=== PATIENT | female | born 1945 | race Caucasian/White ===

== ENCOUNTER → 2016-03-27 | Outpatient (CLI) | payer OTHER ==
--- NOTE | 2016-03-27 10:23 | MA ---
Screening Digital Left Mammogram With Tomosynthesis Clinical Indications: Routine screening. History of right mastectomy for breast cancer. Technique: Standard digital cephalocaudal and tomosynthesis mediolateral oblique projections are obt ained of the left breast. The digital images are processed by the iCAD computer aided detection syst em. Comparison: March 20, 2014 Breast density: C; The breast tissue is heterogeneously dense, which could obscure detection of small masses. Findings: CAD was reviewed. No suspicious findings are identified in the left breast. Impression: Negative left mammogram. BI-RADS 1. Recommendation: Routine screening is recommended in one year, as long as physical examination is ricardo ign in this patient with moderately dense breast parenchyma. [facility] will send a result letter to the patient. Negative mammography should not preclude additional workup of a clinically suspicious finding. The patient's information is entered into a reminder system with a target due date for her next mammo gram.
--- NOTE | 2016-03-27 18:04 | DX ---
DEXA Bone Mineral Densitometry Clinical Indications: Postmenopausal, osteoporosis medication, Synthroid for thyroid dysfunction, hi story of breast cancer, follow-up osteoporosis Comparison: March 20, 2014 Technique: Bone Mineral Densitometry (BMD) by Dual Energy X-Ray Absorptiometry (DEXA) was performed utilizing the [employer] scanner. The lumbar spine was evaluated in the AP projection. The bilat eral hips and forearm were evaluated in the AP projection. Vertebral fracture assessment was also pe rformed. AP Lumbar Spine: The L1 and L2 vertebral bodies were evaluated. BMD: 0.739 gm/cm2 T-score: -3.6 SD Z-score: -1.8 SD Decreased by 13.9% AP Left Hip: Total BMD: 0.644 gm/cm2 T-score: -2.9 SD Z-score: -1.3 SD No significant change. AP Right Hip: Neck BMD: 0.605 gm/cm2 T-score: -3.1 SD Z-score: -1.3 SD No significant change in total BMD AP Left Forearm, 02/18: BMD: 0.487 gm/cm2 T-score: -4.4 SD Z-score: -2.5 SD No significant change Vertebral Fracture Assessment: No significant fracture deformity. No prevertebral aortic calcificati on, significant marginal bone spurring, facet arthrosis, or intrinsic vertebral body sclerosis that would effect the accuracy of the lumbar spine BMD measurement. Conclusion: Considering the lowest measured site, the patient remains osteoporotic and at increased risk for fracture. Since the forearm is the lowest measured site, it would be worthwhile to exclude h yperparathyroidism. The ten year FRAX risk for any major osteoporotic fracture , which excludes the r isk for a wrist fracture, is 19.5% and for a hip fracture is 7.3%. Osteoporotic therapeutic intervent ion should be continued as clinically directed. To prevent osteoporosis and to promote the patient's bone density, the following recommendations shou ld be considered: 1. Pursue a regular regimen of weightbearing and muscle strengthening exercises in order to reduce t he risk of falls and fractures (as tolerated by the patient's general medical condition). 2. Ensure that daily dietary calcium uptake is maximized. 3. Consider checking the serum vitamin D level. Ensure that intake of vitamin D is 800 IU per day (f or ages 71 and older). 4. Consider follow-up DEXA scan in one year to reassess the efficacy of pharmacologic intervention i n this severely osteoporotic patient.
== END ==
LOC: FIMAGING 08:57
PROVIDERS: ATTEND Family Medicine
DX: M81.0 Age-related osteoporosis without current pathological fracture (principal); E07.9 Disorder of thyroid, unspecified; Z78.0 Asymptomatic menopausal state; Z85.3 Personal history of malignant neoplasm of breast
CPT/HCPCS: G0202-52

== ENCOUNTER 2016-09-25 09:58 | Emergency (ER) | payer OTHER ==
[2016-09-25 10:04] VITALS: RESP 18
--- NOTE | 2016-09-25 10:31 | EDPHY ---
H & P Stated Complaint: rlq and r flank pain x 2 weeks Time Seen by Provider: 09/25/16 10:17 HPI/ROS: CHIEF COMPLAINT: Right lower quadrant pain x2 weeks HISTORY OF PRESENT ILLNESS: 71-year-old female arrives via private vehicle complaining of 2 weeks of progressive right lower quadrant pain described as constant,, dull ache. Not reproducible with palpation or with oral intake. Contacted her PCP this morning recommend she come to the ER for evaluation. No nausea or vomiting. Loose stool x1 year. No melena or hematochezia. No trauma. No rash. No urinary abnormality. No dysuria no hematuria. Last oral intake 7:30 a.m. consisting of toast PRIMARY CARE PROVIDER:Dr. Eduardo Apple REVIEW OF SYSTEMS: A ten point review of systems was performed and is negative with the exception of the items mentioned in the HPI PAST MEDICAL & SURGICAL HISTORY: Breast cancer. Mastectomy. Cervical fusion. Thyroidectomy. SOCIAL HISTORY: Nonsmoker. No drug use. PHYSICAL EXAM (Prior to examination, patient consented to physical exam, hands were washed and my usual and customary physical exam procedures followed) 1) GENERAL: Well-developed, well-nourished, alert and oriented. Appears to be in no acute distress. 2) HEAD: Normocephalic, atraumatic 3) HEENT: Pupils equal, round, reactive to light bilaterally. Sclera anicteric. Nasopharynx, oropharynx, clear, no lesions. Ears bilaterally with normal tympanic membranes. 4) NECK: Full range of motion, no meningeal signs. 5) LUNGS: Clear auscultation bilaterally, no wheezes, no rhonchi, no retractions. 6) HEART: Regular rate and rhythm, no murmur, no heave, no gallop. 7) ABDOMEN: No guarding, tender to palpation right lower quadrant with positive McBurney's , negative Baer's, negative Rovsing's, negative peritoneal sign, 8) MUSCULOSKELETAL: Moving all extremities, no focal areas of tenderness, no obvious trauma. No peripheral edema or discoloration. 9) BACK: No CVA tenderness, no midline vertebral tenderness, no fluctuance, no step-off, no obvious trauma, no visual or palpable abnormality. 10) SKIN: No rash, no petechiae. no vesicles 11) Psychiatric: Patient is oriented X 3, there is no agitation. DIFFERENTIAL DIAGNOSIS: My differential diagnosis includes, but is not limited to, acute appendicitis, acute cholecystitis, bowel obstruction, acute pancreatitis, , gastritis and urinary tract infection. The patient understands that this diagnosis is provisional and can never be 100% accurate. This is a partial list of diagnoses considered. These considerations are based on history , physical exam, past history and reassessment. - Personal History Current Tetanus/Diphtheria Vaccine: Yes Tetanus Vaccine Date: Within 10 years - Medical/Surgical History Hx Asthma: No Hx Chronic Respiratory Disease: No Hx Diabetes: No Hx Cardiac Disease: No Hx Renal Disease: No Hx Cirrhosis: No Hx Alcoholism: No Hx HIV/AIDS: No Hx Splenectomy or Spleen Trauma: No Other PMH: Breast CA, Thyroidectomy, R lumpectomy 1998, R partial mastectomy, Arthritis, R toe surgery, cervical fusion C2-C3, C3-C4, R rotator cuff repair. - Social History Smoking Status: Never smoked Constitutional: Initial Vital Signs Temperature (C) 36.4 C 09/25/16 10:02 Heart Rate 54 L 09/25/16 10:02 Respiratory Rate 18 09/25/16 10:02 Blood Pressure 155/57 H 09/25/16 10:02 O2 Sat (%) 98 09/25/16 10:02 O2 Delivery Mode Room Air Allergies/Adverse Reactions: No Known Allergies Allergy (Verified 09/25/16 10:01) Home Medications: Medication Instructions Recorded Ascorbic Acid [Vitamin C 500 mg 500 mg PO DAILY 05/30/14 (*)] Aspirin [Aspirin 81mg (*)] 81 mg PO DAILY 05/30/14 Calcium Citrate W/Vit D [Citracal 315 mg PO DAILY 05/30/14 + D] Cholecalciferol Vit D3 [Vitamin D3 1,000 units PO DAILY 05/30/14 (*)] Levothyroxine [Synthroid 125 mcg 125 mcg PO DAILY 05/30/14 (*)] Meloxicam [Mobic 15 mg] 15 mg PO DAILY 05/30/14 Phytonadione [Vitamin K] 100 mcg PO DAILY 05/30/14 Raloxifene HCl [Evista] 60 mg PO DAILY 05/30/14 Acyclovir [Zovirax 200 mg (*)] 200 mg PO DAILY 06/08/14 Docusate Sodium [Colace] 100 mg PO BID #6 cap 09/25/16 Medical Decision Making ED Course/Re-evaluation: 12:04 p.m.: Re-evaluation. Re-evaluated abdomen which is soft no guarding or rebound. Discussed her imaging studies showing normal appearing appendix, constipation in the ascending colon which may be the etiology of the patient's discomfort. Doubt acute appendicitis, doubt UTI, doubt nephrolithiasis. Plan will be discharge follow up with primary care provider with usual and customary discharge precautions and instructions.Care and management in consultation with primary supervising physician Dr Perdomo . - Data Points Laboratory Results: Laboratory Results 09/25/16 10:31 09/25/16 10:31 Departure - Departure Disposition: Home, Routine, Self-Care Clinical Impression: Abdominal pain, Constipation Condition: Good Instructions: Acute Abdominal Pain (ED) Additional Instructions: Seek immediate medical attention if you develop new or worsening symptoms, if you develop fevers, chills, inability to tolerate oral intake or any other symptoms that concerns you. Referrals: Eduardo Apple DO [Primary Care Provider] - 1 day without fail Prescriptions: Docusate Sodium [Colace] 100 mg PO BID #6 cap
[2016-09-25 10:42] LABS: % IMMATURE GRANULYOCYTES 0.1 % (0.0-1.1); ABSOLUTE IMMATURE GRANULOCYTES 0.01 10^3/uL (0.00-0.10); ADD DIFF? NO; ADD MORPH? NO; ADD SCAN? NO; ATYPICAL LYMPHOCYTE FLAG 0 (0-99); FRAGMENT RBC FLAG 0 (0-99); HEMATOCRIT 43.8 % (38.0-47.0); HEMOGLOBIN 14.9 g/dL (12.6-16.3); LEFT SHIFT FLG 0 (0-99); LIPEMIA HEMOLYSIS FLAG 90 (0-99); MEAN CELL HEMOGLOBIN 31.2 pg (27.9-34.1); MEAN CELL VOLUME 91.8 fL (81.5-99.8); MEAN PLATELET VOLUME 9.9 fL (8.7-11.7); PLATELET CLUMPS FLAG 0 (0-99); PLATELET COUNT 286 10^3/uL (150-400); RED BLOOD CELL COUNT 4.77 10^6/uL (4.18-5.33); RED CELL DISTRIBUTION WIDTH 14.4 % (11.5-15.2)
[2016-09-25 10:50] LABS: COLOR PALE YELLOW; LEUKOCYTE ESTERASE,URINE NEGATIVE (NEGATIVE); NITRITE,URINE NEGATIVE (NEGATIVE)
[2016-09-25 10:52] LABS: MUCUS TRACE /lpf (NONE-1+)
[2016-09-25 11:20] LABS: ALANINE AMINOTRANSFERASE 28 IU/L (9-52); ALBUMIN 4.3 g/dL (3.5-5.0); ALKALINE PHOSPHATASE 50 IU/L (38-126); ANION GAP 13 mEq/L (8-16); ASPARTATE AMINOTRANSFERASE 25 IU/L (14-46); BILIRUBIN,TOTAL 0.5 mg/dL (0.1-1.4); BILIRUBIN-CONJUGATED 0.3 mg/dL (0.0-0.5); BILIRUBIN-UNCONJUGATED 0.2 mg/dL (0.0-1.1); CALCIUM 9.5 mg/dL (8.5-10.4); CARBON DIOXIDE 23 mEq/l (22-31); CHLORIDE 105 mEq/L (97-110); CREATININE 1.1 mg/dL (0.6-1.0); GLOMERULAR FILTRATION RATE 49; GLUCOSE 96 mg/dL (70-100); POTASSIUM 4.5 mEq/L (3.5-5.2); SODIUM 141 mEq/L (134-144); TOTAL PROTEIN 7.2 g/dL (6.3-8.2)
[2016-09-25] MEDS ORDERED: IOPAMIDOL (ISOVUE-300) 100 ML BTL ONE (11:27)
[2016-09-25 12:54] VITALS: BP 134/77; PULSE 56; TEMP 98.4; O2SAT 97
== END 2016-09-25 12:54 | disposition home or self-care (01) ==
DX: K59.00 Constipation, unspecified (principal); Z79.82 Long term (current) use of aspirin; Z85.3 Personal history of malignant neoplasm of breast
CPT/HCPCS: 82947-QW; Q9967

== ENCOUNTER → 2016-10-27 | Outpatient (CLI) | payer OTHER | LOC: FIMAGING 13:32 | PROVIDERS: ATTEND Family Medicine | DX: M51.86 Other intervertebral disc disorders, lumbar region (principal); M48.07 Spinal stenosis, lumbosacral region ==

== ENCOUNTER → 2017-04-08 | Outpatient (CLI) | payer OTHER | LOC: FIMAGING 08:23 | PROVIDERS: ATTEND Family Medicine | DX: Z12.31 Encounter for screening mammogram for malignant neoplasm of breast (principal); Z85.3 Personal history of malignant neoplasm of breast ==

== ENCOUNTER → 2017-05-04 | Outpatient (CLI) | payer OTHER | LOC: FIMAGING 09:10 | PROVIDERS: ATTEND Family Medicine | DX: M43.9 Deforming dorsopathy, unspecified (principal); M51.34 Other intervertebral disc degeneration, thoracic region; M25.78 Osteophyte, vertebrae ==

== ENCOUNTER → 2018-04-07 | Outpatient (CLI) | payer OTHER | LOC: FIMAGING 07:51 | PROVIDERS: ATTEND Family Medicine | DX: Z12.31 Encounter for screening mammogram for malignant neoplasm of breast (principal); Z13.820 Encounter for screening for osteoporosis; M81.0 Age-related osteoporosis without current pathological fracture; E03.9 Hypothyroidism, unspecified; Z90.11 Acquired absence of right breast and nipple; Z85.3 Personal history of malignant neoplasm of breast; Z79.899 Other long term (current) drug therapy ==